=== PATIENT | male | born 1960 | race Two or more races ===

== ENCOUNTER 2016-05-08 22:28 | Emergency (ER) | payer OTHER ==
[~2016-05-08] VITALS: Ht 172.7 cm; Wt 122.5 kg
[2016-05-08] MEDS ORDERED: BUPIVACAINE 0.5 % PF 150 MG/30 ML VIAL IJ ONE (23:00)
[2016-05-09 00:49] VITALS: BP 138/87
== END 2016-05-09 00:50 | disposition left against medical advice (07) ==
LOC: ER 22:28
DX: K08.89 Other specified disorders of teeth and supporting structures (principal); Z95.818 Presence of other cardiac implants and grafts
CPT/HCPCS: 64400; 99284; A4606; Z7610